=== PATIENT | female | born 1940 | race African-American/Black ===

== ENCOUNTER 2023-02-10 07:32 | Emergency (ER) | payer MEDICARE, BC ==
[~2023-02-10] VITALS: Ht 154.9 cm; Wt 61.7 kg
[~2023-02-10 07:32] MED LIST: ATOR20TA PO
--- NOTE | 2023-02-10 07:40 | NUR ---
BIBS FOR CHEST PAIN TODAY WHILE SHOPPING. NO PAIN UPON ARRIVAL. A/O X 3, ABLE TO MAKE NEEDS KNOWN, TOLERATING WELL ON ROOM AIR. WILL CONTINUE TO MONITOR.
--- NOTE | 2023-02-10 07:55 | NUR ---
BLOOD SAMPLES OBTAINED
--- NOTE | 2023-02-10 08:05 | NUR ---
PT CONTACT IS HERNAN [phone] DR. MELARA [phone] PT SAYS SHE TAKES MEDICATION BUT DOES NOT REMEMBER WHAT FOR. OFFICE OPENS AT 9 A.M. WILL CALL [facility] HEALTH HISTORY.
[2023-02-10 08:08] LABS: BASOPHILS # (AUTO) 0.1 K/uL (0.0-0.2); BASOPHILS % (AUTO) 1.2 % (0.0-2.0); EOSINOPHILS % (AUTO) 7.2 % (0.0-6.0); HEMATOCRIT 38 % (33-45); HEMOGLOBIN 12.7 g/dL (11.5-14.8); LYMPHOCYTES # (AUTO) 2.4 K/uL (0.8-4.8); LYMPHOCYTES % (AUTO) 26.4 % (20.0-44.0); MEAN CORPUSCULAR HGB CONC 34 g/dl (31.0-36.0); MEAN CORPUSCULAR VOLUME 91 fL (82-100); MONOCYTES # (AUTO) 0.7 K/uL (0.1-1.30); MONOCYTES % (AUTO) 7.9 % (2.0-12.0); NEUTROPHILS # (AUTO) 5.2 K/uL (1.8-8.9); NEUTROPHILS % (AUTO) 57.3 % (43.0-81.0); PLATELET COUNT (AUTO) 324 K/uL (150-450); RED BLOOD CELL COUNT(AUTO) 4.13 MIL/uL (4.0-5.2); WHITE BLOOD COUNT (AUTO) 9.1 K/uL (4.3-11.0)
[2023-02-10 08:27] LABS: CALCIUM, SERUM 9.3 mg/dL (8.5-10.1); CARBON DIOXIDE 27 mmol/L (21-32); CHLORIDE 105 mmol/L (98-107); GLUCOSE 104 mg/dL (74-106); POTASSIUM 4.6 mmol/L (3.5-5.1); SODIUM SERUM 141 mmol/L (136-145); UREA NITROGEN, BLOOD 21 mg/dL (7-18)
--- NOTE | 2023-02-10 09:05 | NUR ---
DR. MELARA [phone] WAS CALLED FOR HEALTH HISTORY PT FACE SHEET WAS FAXED OVER
--- NOTE | 2023-02-10 10:04 | NUR ---
urine collected and sent
[2023-02-10 13:36] VITALS: BP 119/69; TEMP 98.1; O2SAT 97
== END 2023-02-10 13:36 | disposition home or self-care (01) ==
LOC: ER 07:54
DX: R07.9 Chest pain, unspecified (principal); M19.90 Unspecified osteoarthritis, unspecified site; Z60.2 Problems related to living alone
CPT/HCPCS: 36415; 71045-TC; 80048-TC; 83880; 84484-TC; 85025-TC